=== PATIENT | male | born 2000 | race African-American/Black ===

== ENCOUNTER 2021-02-06 12:21 | Observation (INO) | payer OTHER ==
[~2021-02-06] VITALS: Ht 167.6 cm; Wt 48.8 kg
[2021-02-06 13:51] LABS: PLATELET COUNT 133 K/uL (142-355)
--- NOTE | 2021-02-06 14:08 | NUR ---
02/06/21 1305 PT TO ROOM 1108 DX CHEST PAIN.ORIENTED TO ROOM CALL LIGHT WITHIN REACH.CC 02/06/21 1400 COVID 19 SWAB COLLECTED TOLERATED WELL.CC
[2021-02-06 14:12] LABS: PARTIAL THROMBOPLASTIN TIME 28.5 SECONDS (24.5-33.6)
[2021-02-06 14:25] LABS: POTASSIUM 3.7 mmol/L (3.6-5.2); SODIUM 141 mmol/L (136-145)
--- NOTE | 2021-02-06 14:25 | NUR ---
1355 PT ORIENTATED TO ROOM. PT IS ASSISTED INTO HOSPITAL GOWN, TELEMETRY APPLIED, 20G X 1 ATTEMPT TO LEFT FOREARM WITHOUT DIFFICULTY. PT TOLERATED WELL. PATIENT IS EDUCATED TO NOTIFY NURSE WHEN PT URINATES IN URINAL. PT VERBALIZES UNDERSTANDING. CALL LIGHT AND BEDSIDE TABLE IS WITHIN REACH.
[2021-02-06 14:44] VITALS: BP 92/56; TEMP 98.6; Ht 167.6 cm; Wt 48.8 kg
[2021-02-06 16:00] VITALS: BP 106/60; TEMP 98.6
--- NOTE | 2021-02-06 18:19 | NUR ---
02/06/21 1700 SITTING UP IN BED EATING DINNER NO C/O VOICED.CALL LIGHT WITHIN REACH.CC
--- NOTE | 2021-02-06 18:57 | NUR ---
02/06/211849 CALLED TO CHECK ON PATIENT UPDATED ON PT CARE.WILL CALL HER BACK WITH RESULTS FROM CXR.PHONE CALL TRANSFERRED TO PT ROOM SO MAY SPEAK WITH PT AND MOM.CC
[2021-02-06 20:00] VITALS: BP 102/68; TEMP 97.7
[2021-02-07] VITALS: BP 104/67; TEMP 98.3
--- NOTE | 2021-02-07 03:21 | NUR ---
Pt resting in bed with eyes closed. No c/o voiced. Has denied c/o CP this shift so far. CXR reported to Dr. Arteaga 02/06/21 @ 2100 at which time I also reported to her pt's BP was 102/68. Order was given to hold Metoprolol and to give ASA 325mg x one dose now. Was noted pt had already received ASA earlier in the day. Reported to Dr. Arteaga that pt had order for ASA 325mg po dly and pt had received a dosaged and order for one time dose was d/c'd. Pt has had no s/s of distress. Mother remains at bedside. Call light in easy reach.
[2021-02-07 04:00] VITALS: BP 112/65; TEMP 98
[2021-02-07 08:00] VITALS: BP 111/66; TEMP 98.4
--- NOTE | 2021-02-07 11:27 | NUR ---
PATIENT DENIES PAIN AT THIS TIME. PATIENT FREE OF NEEDS. NAD NOTED.
[2021-02-07 12:00] VITALS: BP 97/50; TEMP 98.2
--- NOTE | 2021-02-07 16:51 | NUR ---
PATIENT DISCHARGED TO HOME WITH FAMILY.
== END 2021-02-07 16:45 | disposition home or self-care (01) ==
LOC: MED/SURG 12:21
PROVIDERS: ADMIT Family Medicine; ATTEND Family Medicine
DX: R07.89 Other chest pain (principal); R06.02 Shortness of breath; Z82.49 Family history of ischemic heart disease and other diseases of the circulatory system; K21.9 Gastro-esophageal reflux disease without esophagitis; R94.31 Abnormal electrocardiogram [ECG] [EKG]
CPT/HCPCS: 80053; 80061; 80307; 81000; 82550; 84436; 84443; 84484; 85027; 85610; 85730; 87635; 93005; 96365; 96366; 99220; G0378; G0379; U0003